=== PATIENT | male | born 1965 | race African-American/Black ===

== ENCOUNTER 2018-07-25 17:06 | Emergency (ER) | payer MEDICAID ==
[~2018-07-25] VITALS: Ht 188 cm; Wt 68.0 kg
[~2018-07-25 17:06] MED LIST: PROP50TA3 PO
[2018-07-25 23:23] VITALS: BP 130/79
== END 2018-07-25 23:24 | disposition short-term general hospital (02) ==
LOC: ER 17:06
DX: S02.612A Fracture of condylar process of left mandible, initial encounter for closed fracture (principal); S02.611A Fracture of condylar process of right mandible, initial encounter for closed fracture; S00.81XA Abrasion of other part of head, initial encounter; E05.90 Thyrotoxicosis, unspecified without thyrotoxic crisis or storm; Z87.891 Personal history of nicotine dependence; Z98.890 Other specified postprocedural states; Z79.899 Other long term (current) drug therapy; V00.131A Fall from skateboard, initial encounter; Y93.51 Activity, roller skating (inline) and skateboarding; Y92.89 Other specified places as the place of occurrence of the external cause; Y99.8 Other external cause status
CPT/HCPCS: 70486; 93005; 99285

== ENCOUNTER 2018-12-27 17:46 | Inpatient (IN) | payer MEDICAID ==
[~2018-12-27] VITALS: Ht 188 cm; Wt 68.0 kg
[2018-12-28 01:19] LABS: HEMATOCRIT. 37.7 % (42.0-52.0); HEMOGLOBIN. 12.7 g/dL (14.0-18.0); MEAN CORPUSCULAR HEMOGLOBIN 26.9 pg (28.0-32.0); MEAN PLATELET VOLUME 7.2 fl (7.4-10.4); PLATELET 294 x1000/uL (130-400); RED BLOOD CELL COUNT 4.72 mill/uL (4.7-6.1); RED CELL DISTRIBUTION WIDTH 13.7 % (11.6-14.6)
[2018-12-28 01:24] LABS: CHLORIDE 104 mEq/L (98-107)
[2018-12-28 01:50] LABS: ATYPICAL LYMPHOCYTES 2; PLATELET ESTIMATE NORMAL
[2018-12-28] MEDS ORDERED: IOHEXOL-300 100 ML BOTTLE ONE (04:01)
[2018-12-28] MEDS ORDERED: PROPYLTHIOURACIL 50MG TABLET PO SCH (04:30)
[2018-12-28 10:15] VITALS: BP 112/59
[2018-12-28] MEDS ORDERED: NITROGLYCERIN 0.4MG TABLET SL SL PRN (10:15)
[2018-12-28] MEDS ORDERED: CLONIDINE 0.1MG TABLET PO PRN (10:15)
[2018-12-28] MEDS ORDERED: MAGNESIUM/ALUMINUM HYDROXIDE/SIMETHICONE 30ML UDC PO PRN (10:15)
[2018-12-28] MEDS ORDERED: NA PHOS,M-B/NA PHOS,DI-BA ENEMA 118ML PR PRN (10:15)
[2018-12-28] MEDS ORDERED: DOCUSATE SODIUM 100MG CAPSULE PO PRN (10:15)
[2018-12-28] MEDS ORDERED: ONDANSETRON HCL 4MG/2ML INJ IV PRN (10:15)
[2018-12-28] MEDS ORDERED: IPRATROPIUM/ALBUTEROL 0.5-3(2.5)MG/3ML NEB INH PRN (10:15)
[2018-12-28] MEDS ORDERED: ACETAMINOPHEN 325MG TABLET PO PRN (10:15)
[2018-12-28] MEDS ORDERED: GUAIFENESIN 200MG/10ML SUGAR FREE UDC PO PRN (10:15)
[2018-12-28] MEDS: GUAIFENESIN 600MG ER TABLET PO SCH ×3 (10:30→21:00)
[2018-12-28] MEDS: FAMOTIDINE 20MG TABLET PO SCH ×3 (10:30→21:00)
[2018-12-28] MEDS ORDERED: ENOXAPARIN 40MG/0.4ML SYR SUBCUT SCH (11:00)
[2018-12-28] MEDS: KETOROLAC 15MG/ML VIAL IV PRN ×2 (11:33→17:40)
[2018-12-28] MEDS: ASCORBIC ACID 500 MG TABLET PO SCH ×2 (11:33→21:46)
[2018-12-28] MEDS ORDERED: IPRATROPIUM/ALBUTEROL 0.5-3(2.5)MG/3ML NEB HHN SCH (12:00)
[2018-12-28 13:36] LABS: TOTAL IRON BINDING CAPACITY 188 ug/dL (250-450)
[2018-12-28] MEDS: LEVOFLOXACIN 750MG PREMIX 150 ML IV SCH (13:42)
[2018-12-28] MEDS ORDERED: IPRATROPIUM/ALBUTEROL 0.5-3(2.5)MG/3ML NEB HHN PRN (13:45)
[2018-12-28 13:51] LABS: FOLIC ACID (FOLATE) SERUM >20 ng/mL ng/mL (>5.38)
[2018-12-28 14:03] LABS: VITAMIN B12 SERUM 658 pg/mL (211-911)
[2018-12-28 16:00] VITALS: BP 120/80
[2018-12-28 20:00] VITALS: BP 99/55
[2018-12-28] MEDS ORDERED: ZOLPIDEM TARTRATE 5MG TABLET PO PRN (21:00)
[2018-12-28] MEDS: PROPYLTHIOURACIL 50MG TABLET PO SCH (21:52)
[2018-12-29] VITALS: BP 120/75
[2018-12-29 04:00] VITALS: BP 114/60
[2018-12-29] MEDS: PROPYLTHIOURACIL 50MG TABLET PO SCH ×3 (06:05→20:43)
[2018-12-29 07:58] VITALS: BP 98/52
[2018-12-29] MEDS: ASCORBIC ACID 500 MG TABLET PO SCH ×2 (08:36→20:43)
[2018-12-29] MEDS: KETOROLAC 15MG/ML VIAL IV PRN ×2 (08:37→20:44)
[2018-12-29] MEDS: GUAIFENESIN 600MG ER TABLET PO SCH ×2 (08:42→20:44)
[2018-12-29] MEDS: FAMOTIDINE 20MG TABLET PO SCH ×3 (08:42→20:43)
[2018-12-29 12:00] VITALS: BP 98/57
[2018-12-29] MEDS: LEVOFLOXACIN 750MG PREMIX 150 ML IV SCH (13:17)
[2018-12-29 16:00] VITALS: BP 113/71
[2018-12-29 20:00] VITALS: BP 107/65
[2018-12-30] VITALS (17 sets, daily range): BP systolic 104–161; BP diastolic 41–87
[2018-12-30] MEDS: PROPYLTHIOURACIL 50MG TABLET PO SCH ×2 (06:00→14:27)
[2018-12-30] MEDS: ASCORBIC ACID 500 MG TABLET PO SCH (08:38)
[2018-12-30] MEDS: KETOROLAC 15MG/ML VIAL IV PRN ×2 (08:38→18:26)
[2018-12-30] MEDS: FAMOTIDINE 20MG TABLET PO SCH (08:38)
[2018-12-30] MEDS: GUAIFENESIN 600MG ER TABLET PO SCH (08:38)
[2018-12-30 10:00] LABS: INR 1.2
[2018-12-30] MEDS ORDERED: FENTANYL CITRATE/PF 50MCG/ML 2ML VIAL ONE (10:51)
[2018-12-30] MEDS ORDERED: LIDOCAINE HCL 1% 20ML VIAL (Pyxis) INJ ONE (10:54)
[2018-12-30] MEDS ORDERED: SODIUM BICARBONATE 4% (2.4MEQ) 5ML VIAL IV ONE (10:55)
[2018-12-30] MEDS ORDERED: LEVOFLOXACIN 250MG TABLET PO SCH (11:00)
[2018-12-30] MEDS ORDERED: FENTANYL CITRATE/PF 50MCG/ML 2ML VIAL IV ONE (11:45)
[2018-12-30 13:06] LABS: CA 27.29 < 3.5 U/mL (0.0-38.6)
[2018-12-31 08:24] LABS: CA 19-9 3 U/mL (0-35); CANCER ANTIGEN 125 5.3 U/mL (Not Estab.)
== END 2018-12-30 21:08 | disposition home or self-care (01) | DRG 136 ==
LOC: ER 18:02 → 7WST 12-28 03:46 → ENRESERV 12-28 07:07
PROVIDERS: ADMIT Internal Medicine; ATTEND Internal Medicine
PROC: 0BBK3ZX Excision of Right Lung, Percutaneous Approach, Diagnostic (ICD-10-PCS; principal; 2018-12-30)
DX: C34.90 Malignant neoplasm of unspecified part of unspecified bronchus or lung (principal); J85.0 Gangrene and necrosis of lung; E44.1 Mild protein-calorie malnutrition; J43.2 Centrilobular emphysema; R16.2 Hepatomegaly with splenomegaly, not elsewhere classified; D63.8 Anemia in other chronic diseases classified elsewhere; R59.0 Localized enlarged lymph nodes; E05.90 Thyrotoxicosis, unspecified without thyrotoxic crisis or storm; K30 Functional dyspepsia; G47.00 Insomnia, unspecified; K59.00 Constipation, unspecified; F12.10 Cannabis abuse, uncomplicated; E04.1 Nontoxic single thyroid nodule; Z87.891 Personal history of nicotine dependence; Z93.3 Colostomy status; Z84.89 Family history of other specified conditions; Z79.899 Other long term (current) drug therapy; Z68.1 Body mass index [BMI] 19.9 or less, adult
CPT/HCPCS: 32405; 36415; 71045; 71260; 77012; 82607; 82746; 83540; 83550; 84439; 84443; 86300; 86301; 86304; 88305; 93970; 96374; 99291; J1650; J1885; J1956; J3010; J3490; J7050; Q9967

== ENCOUNTER 2019-05-08 01:51 | Emergency (ER) | payer MEDICAID ==
[~2019-05-08] VITALS: Ht 185.4 cm; Wt 59.0 kg
[2019-05-08 03:43] VITALS: BP 96/60
== END 2019-05-08 03:57 | disposition home or self-care (01) ==
LOC: ER 01:51
DX: T40.601A Poisoning by unspecified narcotics, accidental (unintentional), initial encounter (principal); E05.90 Thyrotoxicosis, unspecified without thyrotoxic crisis or storm; Y92.9 Unspecified place or not applicable; Z93.3 Colostomy status; Z85.118 Personal history of other malignant neoplasm of bronchus and lung
CPT/HCPCS: 99283